=== PATIENT | male | born 1990 | race African-American/Black ===

== ENCOUNTER 2016-07-19 10:27 | Emergency (ER) | payer OTHER, SELFPAY ==
--- NOTE | 2016-07-19 11:17 | EDDOCDS ---
Physician Documentation [facility] Name: Ranjit Moseley Age: 26 yrs Sex: Male : 1990 Arrival Date: 07/19/2016 Time: 10:27 Bed TR8 Private MD: NO PRIMARY PHYSICIAN, . Disposition: 07/19/16 10:53 Discharged to Home/Self Care. Impression: Dental caries. - Condition is Stable. - Discharge Instructions: Dental Pain. - Prescriptions for Clindamycin HCl 300 mg Oral Capsule - take 1 capsule by ORAL route every 6 hours; 40 capsule. Ultram 50 mg Oral Tablet - take 1 tablet by ORAL route every 6 hours As needed MDD: 4 tabs; 20 tablet. - Medication Reconciliation, Local Pharmacy Hours form. - Follow up: Your, Dentist; When: Call to arrange an appointment; Reason: Further diagnostic work-up, Recheck today's complaints, Continuance of care. - Problem is an ongoing problem. - Symptoms are unchanged. Historical: - Allergies: no known allergies; - Home Meds: 1. ibuprofen 800 mg Oral tab 3 times per day (Last dose: 07/18/2016) - PMHx: none; - PSHx: none; - Social history: Smoking status: Patient states former smoker of tobacco. No barriers to communication noted, The patient speaks fluent Peruvian, Speaks appropriately for age. - Family history: Not pertinent. - : The pt / caregiver states he / she is not on anticoagulants. Home medication list is obtained from the patient. - Exposure Risk Screening:: None identified. Vital Signs: 07/19 10:30 BP 146 / 81; Pulse 72; Resp 18 S; Temp 96.8(O); Pulse Ox 100% on R/A; Weight 86.18 kg / gr2 189.99 lbs (R); Height 5 ft. 8 in. (172.72 cm) (R); Pain 10/10; 10:30 Body Mass Index 28.89 (86.18 kg, 172.72 cm) gr2 MDM: 11:02 Financial registration complete. mm15 11:02 [facility] Payment Agreement was scanned into [employer] and attached to record. mm15 Signatures: Daija Mitchell RN RN rs3 Eric Carty PA PA btw Ayanna Clifford mm15 Nunu Miranda,RN RN ead The chart was reviewed and I authenticate all verbal orders and agree with the evaluation and treatment provided.Attachments: 11:02 [facility] Payment Agreement mm15 MTDD
--- NOTE | 2016-07-19 11:17 | EDDOCDS ---
Nurse's Notes [facility] Name: Ranjit Moseley Age: 26 yrs Sex: Male : 1990 Arrival Date: 07/19/2016 Time: 10:27 Bed TR8 Private MD: NO PRIMARY PHYSICIAN, . Diagnosis: Dental caries Presentation: 07/19 10:33 Presenting complaint: Patient states: pt c/o toothache, unable to see dentist until ead August. pt c/o headache. pt took 800 mg ibuprofen at home with no relief. Adult Sepsis Screening: The patient does not have new or worsening altered mentation. Patient's respiratory rate is less than 22. Systolic blood pressure is greater than 100. Patient has a qSOFA score of 0- Negative Sepsis Screen. Suicide/Homicide risk assessment- the patient denies having any suicidal and/or homicidal ideations and does not present with any other emotional, behavioral or mental health complaints. Status: Patient is not a building services engineer or dependent. Transition of care: patient was not received from another setting of care. 10:33 Acuity: LUZMARIA Level 5 ead 10:33 Method Of Arrival: Walkin/Carried/Asstd ead Triage Assessment: 10:35 General: Appears in no apparent distress, uncomfortable, Behavior is appropriate for ead age, cooperative. Pain: Location: mouth Pain currently is 8 out of 10 on a pain scale. HIV screening NA for this visit Offered previously. Neurological: Reports headache. EENT: Reports pain in mouth. Respiratory: Airway is patent Respiratory effort is even, unlabored. Historical: - Allergies: no known allergies; - Home Meds: 1. ibuprofen 800 mg Oral tab 3 times per day (Last dose: 07/18/2016) - PMHx: none; - PSHx: none; - Social history: Smoking status: Patient states former smoker of tobacco. No barriers to communication noted, The patient speaks fluent Israeli, Speaks appropriately for age. - Family history: Not pertinent. - : The pt / caregiver states he / she is not on anticoagulants. Home medication list is obtained from the patient. - Exposure Risk Screening:: None identified. Screenin:14 Screening information is obtained from the patient. Primary language is Israeli. Fall rs3 risk: No risks identified. Assistance ADL's: requires no assistance with activities of daily living. Abuse/DV Screen: The patient / caregiver reports he/she is: not in a situation that causes fear, pain or injury. Nutritional screening: No deficits noted. Advance Directives: Currently, there is no health care proxy. home support is adequate. Assessment: 11:14 General: Appears in no apparent distress. Pain: Complains of pain in mouth. Awake, rs3 alert, oriented. Skin warm and dry. Moves all extremities. Bilateral breath sounds clear. Respirations unlabored. Abdomen soft, non-tender. No apparent distress. The patient / caregiver is instructed regarding the plan of care and ED course. Physical assessment to be completed by BRANDIN/TOMAS. Vital Signs: 10:30 BP 146 / 81; Pulse 72; Resp 18 S; Temp 96.8(O); Pulse Ox 100% on R/A; Weight 86.18 kg gr2 (R); Height 5 ft. 8 in. (172.72 cm) (R); Pain 10/10; 10:30 Body Mass Index 28.89 (86.18 kg, 172.72 cm) gr2 Vitals: 10:30 Log In Time: July 19, 2016 at 10:30. gr2 ED Course: 10:29 Patient visited by Edvin Barone. gr2 10:29 NO PRIMARY PHYSICIAN, . is Private Physician. gr2 10:29 Patient moved to Waiting gr2 10:31 Patient visited by Edvin Barone. gr2 10:31 Patient moved to Pre RCE gr2 10:34 Triage Initiated ead 10:35 Patient moved to Triage 2 ead 10:49 [facility] btw 10:49 Logan Miguel MD is Attending Physician. btw 10:49 Patient visited by Eric Carty PA. btw 10:52 Your, Dentist is Referral Physician. btw 11:02 [facility] Payment Agreement was scanned into [employer] and attached to record. mm15 11:06 Patient moved to TR8 ead 11:16 Patient has correct armband on for positive identification. rs3 11:16 No IV's were initiated during this patient's visit. No procedures done that require rs3 assistance. Order Results: There are currently no results for this order. Outcome: 10:53 Discharge ordered by Provider. btw 11:15 The following High Risk Discharge criteria are identified: None. Discharged to home rs3 with family. Condition: stable. Discharge instructions given to patient, Instructed on discharge instructions, follow up and referral plans. medication usage, Demonstrated understanding of instructions, medications, Pt was receptive of discharge instructions/ teaching. Prescriptions given X 2. No special radiology studies were completed. 11:16 Discharge Assessment: patient administered narcotics - no. The following High Risk rs3 Discharge criteria are identified: None. Discharged to home with family. Property :Personal belongings accompany Pt. 11:16 Patient left the ED. rs3 Signatures: Daija Mitchell,RN RN rs3 Eric Carty PA PA btw Edvin Barone gr2 Ayanna Clifford mm15 Nunu Miranda,RN RN ead MTDD
--- NOTE | 2016-07-21 12:17 | EDDOCDS ---
Physician Documentation [facility] Name: Ranjit Moseley Age: 26 yrs Sex: Male : 1990 Arrival Date: 07/19/2016 Time: 10:27 Bed TR8 Private MD: NO PRIMARY PHYSICIAN, . Disposition: 07/19/16 10:53 Discharged to Home/Self Care. Impression: Dental caries. - Condition is Stable. - Discharge Instructions: Dental Pain. - Prescriptions for Clindamycin HCl 300 mg Oral Capsule - take 1 capsule by ORAL route every 6 hours; 40 capsule. Ultram 50 mg Oral Tablet - take 1 tablet by ORAL route every 6 hours As needed MDD: 4 tabs; 20 tablet. - Medication Reconciliation, Local Pharmacy Hours form. - Follow up: Your, Dentist; When: Call to arrange an appointment; Reason: Further diagnostic work-up, Recheck today's complaints, Continuance of care. - Problem is an ongoing problem. - Symptoms are unchanged. Historical: - Allergies: no known allergies; - Home Meds: 1. ibuprofen 800 mg Oral tab 3 times per day (Last dose: 07/18/2016) - PMHx: none; - PSHx: none; - Social history: Smoking status: Patient states former smoker of tobacco. No barriers to communication noted, The patient speaks fluent Estonian, Speaks appropriately for age. - Family history: Not pertinent. - : The pt / caregiver states he / she is not on anticoagulants. Home medication list is obtained from the patient. - Exposure Risk Screening:: None identified. Vital Signs: 07/19 10:30 BP 146 / 81; Pulse 72; Resp 18 S; Temp 96.8(O); Pulse Ox 100% on R/A; Weight 86.18 kg / gr2 189.99 lbs (R); Height 5 ft. 8 in. (172.72 cm) (R); Pain 10/10; 10:30 Body Mass Index 28.89 (86.18 kg, 172.72 cm) gr2 MDM: 11:02 Financial registration complete. mm15 11:02 [facility] Payment Agreement was scanned into [employer] and attached to record. mm15 13:11 T-Sheet-- Draft Copy was scanned into [employer] and attached to record. gb Signatures: Janel Huerta, Reg Reg gb Daija Mitchell RN RN rs3 Eric Carty PA PA btw Ayanna Clifford mm15 Nunu MirandaRN RN samueld The chart was reviewed and I authenticate all verbal orders and agree with the evaluation and treatment provided.Attachments: 11:02 [facility] Payment Agreement mm15 13:11 T-Sheet-- Draft Copy gb Chart Complete MTDD
--- NOTE | 2016-07-21 12:17 | EDDOCDS ---
Nurse's Notes [facility] Name: Ranjit Moseley Age: 26 yrs Sex: Male : 1990 Arrival Date: 07/19/2016 Time: 10:27 Bed TR8 Private MD: NO PRIMARY PHYSICIAN, . Diagnosis: Dental caries Presentation: 07/19 10:33 Presenting complaint: Patient states: pt c/o toothache, unable to see dentist until ead August. pt c/o headache. pt took 800 mg ibuprofen at home with no relief. Adult Sepsis Screening: The patient does not have new or worsening altered mentation. Patient's respiratory rate is less than 22. Systolic blood pressure is greater than 100. Patient has a qSOFA score of 0- Negative Sepsis Screen. Suicide/Homicide risk assessment- the patient denies having any suicidal and/or homicidal ideations and does not present with any other emotional, behavioral or mental health complaints. Status: Patient is not a service desk manager or dependent. Transition of care: patient was not received from another setting of care. 10:33 Acuity: LUZMARIA Level 5 ead 10:33 Method Of Arrival: Walkin/Carried/Asstd ead Triage Assessment: 10:35 General: Appears in no apparent distress, uncomfortable, Behavior is appropriate for ead age, cooperative. Pain: Location: mouth Pain currently is 8 out of 10 on a pain scale. HIV screening NA for this visit Offered previously. Neurological: Reports headache. EENT: Reports pain in mouth. Respiratory: Airway is patent Respiratory effort is even, unlabored. Historical: - Allergies: no known allergies; - Home Meds: 1. ibuprofen 800 mg Oral tab 3 times per day (Last dose: 07/18/2016) - PMHx: none; - PSHx: none; - Social history: Smoking status: Patient states former smoker of tobacco. No barriers to communication noted, The patient speaks fluent Guamanian, Speaks appropriately for age. - Family history: Not pertinent. - : The pt / caregiver states he / she is not on anticoagulants. Home medication list is obtained from the patient. - Exposure Risk Screening:: None identified. Screenin:14 Screening information is obtained from the patient. Primary language is Guamanian. Fall rs3 risk: No risks identified. Assistance ADL's: requires no assistance with activities of daily living. Abuse/DV Screen: The patient / caregiver reports he/she is: not in a situation that causes fear, pain or injury. Nutritional screening: No deficits noted. Advance Directives: Currently, there is no health care proxy. home support is adequate. Assessment: 11:14 General: Appears in no apparent distress. Pain: Complains of pain in mouth. Awake, rs3 alert, oriented. Skin warm and dry. Moves all extremities. Bilateral breath sounds clear. Respirations unlabored. Abdomen soft, non-tender. No apparent distress. The patient / caregiver is instructed regarding the plan of care and ED course. Physical assessment to be completed by BRANDIN/TOMAS. Vital Signs: 10:30 BP 146 / 81; Pulse 72; Resp 18 S; Temp 96.8(O); Pulse Ox 100% on R/A; Weight 86.18 kg gr2 (R); Height 5 ft. 8 in. (172.72 cm) (R); Pain 10/10; 10:30 Body Mass Index 28.89 (86.18 kg, 172.72 cm) gr2 Vitals: 10:30 Log In Time: July 19, 2016 at 10:30. gr2 ED Course: 10:29 Patient visited by Edvin Barone. gr2 10:29 NO PRIMARY PHYSICIAN, . is Private Physician. gr2 10:29 Patient moved to Waiting gr2 10:31 Patient visited by Edvin Barone. gr2 10:31 Patient moved to Pre RCE gr2 10:34 Triage Initiated ead 10:35 Patient moved to Triage 2 ead 10:49 Eric Carty PA is PHCP. btw 10:49 Logan Miguel MD is Attending Physician. btw 10:49 Patient visited by Eric Carty PA. btw 10:52 Your, Dentist is Referral Physician. btw 11:02 [facility] Payment Agreement was scanned into [employer] and attached to record. mm15 11:06 Patient moved to TR8 ead 11:16 Patient has correct armband on for positive identification. rs3 11:16 No IV's were initiated during this patient's visit. No procedures done that require rs3 assistance. 13:11 T-Sheet-- Draft Copy was scanned into [employer] and attached to record. gb Order Results: There are currently no results for this order. Outcome: 10:53 Discharge ordered by Provider. btw 11:15 The following High Risk Discharge criteria are identified: None. Discharged to home rs3 with family. Condition: stable. Discharge instructions given to patient, Instructed on discharge instructions, follow up and referral plans. medication usage, Demonstrated understanding of instructions, medications, Pt was receptive of discharge instructions/ teaching. Prescriptions given X 2. No special radiology studies were completed. 11:16 Discharge Assessment: patient administered narcotics - no. The following High Risk rs3 Discharge criteria are identified: None. Discharged to home with family. Property :Personal belongings accompany Pt. 11:16 Patient left the ED. rs3 Signatures: Janel Huerta, Reg Reg gb Daija MitchellRN RN rs3 Eric Carty PA PA btw Edvin Barone gr2 Ayanna Clifford mm15 Nunu Miranda,RN RN ead Chart Complete ANANDAD
--- NOTE | 2016-07-21 12:17 | EDDOCDS ---
Physician Documentation [facility] Name: Ranjit Moseley Age: 26 yrs Sex: Male : 1990 Arrival Date: 07/19/2016 Time: 10:27 Bed TR8 Private MD: NO PRIMARY PHYSICIAN, . Disposition: 07/19/16 10:53 Discharged to Home/Self Care. Impression: Dental caries. - Condition is Stable. - Discharge Instructions: Dental Pain. - Prescriptions for Clindamycin HCl 300 mg Oral Capsule - take 1 capsule by ORAL route every 6 hours; 40 capsule. Ultram 50 mg Oral Tablet - take 1 tablet by ORAL route every 6 hours As needed MDD: 4 tabs; 20 tablet. - Medication Reconciliation, Local Pharmacy Hours form. - Follow up: Your, Dentist; When: Call to arrange an appointment; Reason: Further diagnostic work-up, Recheck today's complaints, Continuance of care. - Problem is an ongoing problem. - Symptoms are unchanged. Historical: - Allergies: no known allergies; - Home Meds: 1. ibuprofen 800 mg Oral tab 3 times per day (Last dose: 07/18/2016) - PMHx: none; - PSHx: none; - Social history: Smoking status: Patient states former smoker of tobacco. No barriers to communication noted, The patient speaks fluent [place], Speaks appropriately for age. - Family history: Not pertinent. - : The pt / caregiver states he / she is not on anticoagulants. Home medication list is obtained from the patient. - Exposure Risk Screening:: None identified. Vital Signs: 07/19 10:30 BP 146 / 81; Pulse 72; Resp 18 S; Temp 96.8(O); Pulse Ox 100% on R/A; Weight 86.18 kg / gr2 189.99 lbs (R); Height 5 ft. 8 in. (172.72 cm) (R); Pain 10/10; 10:30 Body Mass Index 28.89 (86.18 kg, 172.72 cm) gr2 MDM: 11:02 Financial registration complete. mm15 11:02 [facility] Payment Agreement was scanned into [employer] and attached to record. mm15 13:11 T-Sheet-- Draft Copy was scanned into [employer] and attached to record. gb Signatures: Janel Huerta, Reg Reg gb Daija Mitchell RN RN rs3 Eric Carty PA PA btw Ayanna Clifford mm15 Nunu MirandaRN RN samueld The chart was reviewed and I authenticate all verbal orders and agree with the evaluation and treatment provided.Attachments: 11:02 [facility] Payment Agreement mm15 13:11 T-Sheet-- Draft Copy gb Chart Complete MTDD
== END 2016-07-19 11:16 | disposition home or self-care (01) ==
LOC: M ED 10:27
DX: K02.9 Dental caries, unspecified (principal); Z87.891 Personal history of nicotine dependence

== ENCOUNTER → 2016-08-17 | Outpatient (REF) | payer OTHER ==
[2016-08-17 20:05] LABS: MICROSCOPIC INDICATED? MAN YES (NO)
[2016-08-17 20:15] LABS: BACTERIA, URINE SMALL AMOUNT; HYALINE CAST, URINE NONE SEEN /lpf (0-1); MICROSCOPIC EXAM PERFORMED; RBC, URINE 0-1 /hpf (0-3); SQUAMOUS EPITHELIAL CELL URINE SMALL AMOUNT /hpf (SMALL AMT); WBC, URINE 0-1 /hpf (0-3)
== END ==
LOC: M LAB REF 16:21
PROVIDERS: ATTEND Physician Assistant
DX: Z11.3 Encounter for screening for infections with a predominantly sexual mode of transmission (principal)

== ENCOUNTER → 2016-11-30 | Outpatient (CLI) | payer OTHER | LOC: M WUC 13:28 | PROVIDERS: ATTEND Physician Assistant | DX: Z20.2 Contact with and (suspected) exposure to infections with a predominantly sexual mode of transmission (principal) ==

== ENCOUNTER → 2017-01-19 | Outpatient (REF) | payer OTHER | LOC: M LAB REF 17:15 | PROVIDERS: ATTEND Physician Assistant | DX: R30.0 Dysuria (principal) ==

== ENCOUNTER 2017-01-20 22:35 | Emergency (ER) | payer OTHER ==
[~2017-01-20] VITALS: Ht 172.7 cm; Wt 86.8 kg
[2017-01-20] MEDS ORDERED: ADACEL/BOOSTRIX VACCINE (DIPHTH/PERTUSS/ACELL/TETANUS)0.5ML SYR (90715) IM ONE (23:15)
[2017-01-21 00:38] VITALS: BP 139/94
== END 2017-01-21 00:41 | disposition home or self-care (01) ==
LOC: M ED 22:35
DX: S41.111A Laceration without foreign body of right upper arm, initial encounter (principal); W25.XXXA Contact with sharp glass, initial encounter; Y92.89 Other specified places as the place of occurrence of the external cause; Y93.89 Activity, other specified; Y99.9 Unspecified external cause status

== ENCOUNTER → 2017-08-26 | Outpatient (CLI) | payer OTHER ==
[2017-08-26 17:40] LABS: BASO % 0.5 % (0.0-1.0); EOS # 0.2 10^3/uL (0.0-0.50); EOS % 2.3 % (0.0-3.0); HEMOGLOBIN 14.6 g/dl (14.0-18.0); IMMATURE GRANULOCYTE % 0.1 % (0-3.0); LYMPH # 2.9 10^3/uL (1.5-6.5); LYMPH % 37.9 % (24.0-44.0); MEAN CORPUSCULAR HEMOGLOBIN 31.1 pg (27.0-33.0); MEAN CORPUSCULAR VOLUME 91.7 fl (80.0-96.0); MONO # 0.4 10^3/uL (0.0-0.8); MONO % 4.8 % (0.0-5.0); NEUTROPHILS # 4.2 10^3/uL (1.8-7.7); NEUTROPHILS % 54.4 % (36.0-66.0); PLATELET COUNT, AUTOMATED 166 10^3/uL (150-450); RED BLOOD COUNT 4.69 10^6/uL (4.30-6.10); RED CELL DISTRIBUTION WIDTH 13.1 % (11.5-14.5); WHITE BLOOD COUNT 7.7 10^3/uL (4.0-10.0)
[2017-08-26 17:54] LABS: ALBUMIN 4.3 GM/DL (3.2-5.2); ALBUMIN/GLOBULIN RATIO 1.34 (1.00-1.93); ALKALINE PHOSPHATASE 84 U/L (45-117); ALT/SGPT 46 U/L (12-78); ANION GAP 7 MEQ/L (8-16); AST/SGOT 30 U/L (7-37); BILIRUBIN,TOTAL 0.3 MG/DL (0.2-1.0); BLOOD UREA NITROGEN 17 MG/DL (7-18); CARBON DIOXIDE LEVEL 29 MEQ/L (21-32); CHLORIDE LEVEL 105 MEQ/L (98-107); CREATININE FOR GFR 1.07 MG/DL (0.70-1.30); GLOMERULAR FILTRATION RATE > 60.0 (>60); GLUCOSE, FASTING 104 MG/DL (70-100); POTASSIUM SERUM 3.9 MEQ/L (3.5-5.1); SODIUM LEVEL 141 MEQ/L (136-145); TOTAL PROTEIN 7.5 GM/DL (6.4-8.2)
[2017-08-26 18:03] LABS: APPEARANCE, URINE CLEAR (CLEAR); BACTERIA, URINE AUTO NEGATIVE (NEGATIVE); BILIRUBIN, URINE AUTO NEGATIVE (NEGATIVE); BLOOD, URINE BLOOD NEGATIVE (NEGATIVE); COLOR, URINE YELLOW (YELLOW); GLUCOSE, URINE (UA) AUTO NEGATIVE (NEGATIVE); KETONE, URINE AUTO NEGATIVE (NEGATIVE); LEUKOCYTE ESTERASE, URINE AUTO NEGATIVE (NEGATIVE); MUCUS, URINE SMALL (NEGATIVE); NITRITE, URINE AUTO NEGATIVE (NEGATIVE); PROTEIN, URINE AUTO NEGATIVE (NEGATIVE); RBC, URINE AUTO 1 /HPF (0-3); SPECIFIC GRAVITY URINE AUTO 1.026 (1.002-1.035); SQUAMOUS EPITHELIAL CELL UR AU 0 /HPF (0-6); WBC, URINE AUTO 1 /HPF (0-3)
[2017-08-29 12:03] LABS: HEPATITIS B SURFACE ANTIGEN NEGATIVE (NEGATIVE)
[2017-08-29 12:27] LABS: HEPATITIS B CORE ANTIBODY IGM NEGATIVE (NEGATIVE); HEPATITIS C VIRUS ABY INDEX 0.1 INDEX (<0.8)
[2017-08-29 12:32] LABS: HEPATITIS A ANTIBODY IGM NEGATIVE (NEGATIVE)
== END ==
LOC: M LAB 15:56
DX: Z00.00 Encounter for general adult medical examination without abnormal findings (principal); Z79.899 Other long term (current) drug therapy
CPT/HCPCS: 80053

== ENCOUNTER 2018-01-06 16:05 | Emergency (ER) | payer OTHER, SELFPAY ==
[2018-01-06] MEDS: LIDOCAINE 2% MDV 20 ML VIAL SC (18:30)
== END 2018-01-06 19:41 | disposition home or self-care (01) ==
LOC: M ED 16:05
DX: S91.115A Laceration without foreign body of left lesser toe(s) without damage to nail, initial encounter (principal); X58.XXXA Exposure to other specified factors, initial encounter; Y92.099 Unspecified place in other non-institutional residence as the place of occurrence of the external cause; Y93.9 Activity, unspecified; Y99.9 Unspecified external cause status; I10 Essential (primary) hypertension; Z72.0 Tobacco use; Z79.899 Other long term (current) drug therapy
CPT/HCPCS: 12002

== ENCOUNTER 2018-01-13 08:46 | Emergency (ER) | payer OTHER | END 2018-01-13 09:41 | disposition home or self-care (01) | LOC: M ED 08:46 | DX: Z48.02 Encounter for removal of sutures (principal); I10 Essential (primary) hypertension; Z79.899 Other long term (current) drug therapy; F17.210 Nicotine dependence, cigarettes, uncomplicated | CPT/HCPCS: 99282 ==

== ENCOUNTER 2018-04-27 15:51 | Emergency (ER) | payer OTHER ==
[2018-04-27 18:05] LABS: INFLUENZA A AMPLIFICATION NEGATIVE (NEGATIVE); INFLUENZA B AMPLIFICATION NEGATIVE (NEGATIVE)
== END 2018-04-27 18:19 | disposition home or self-care (01) ==
LOC: M ED 15:51
DX: J20.9 Acute bronchitis, unspecified (principal); J45.909 Unspecified asthma, uncomplicated
CPT/HCPCS: 71046

== ENCOUNTER 2019-02-09 11:49 | Emergency (ER) | payer OTHER, SELFPAY ==
[~2019-02-09] VITALS: Ht 172.7 cm; Wt 91.8 kg
[~2019-02-09 11:49] MED LIST: ALBU83IN INH; LISI-538; MUCI600T37 PO; PROAAER10; TESS100C PO
--- NOTE | 2019-02-09 12:27 | REP ---
Clinical: Trauma. Technique: AP, lateral, bilateral oblique views right hand . Findings: The osseous structures and joint spaces are intact and normal. There is no evidence for acute fracture or dislocation. Surrounding soft tissues are unremarkable. No subcutaneous emphysema or radiodense foreign body. Impression: Normal right hand series . No acute fracture or dislocation. Electronically Signed by Ramirez Neal MD 02/09/2019 12:17 P
[2019-02-09] MEDS ORDERED: KETOROLAC 60 MG/2 ML VIAL (J1885) IM ONE (12:45)
[2019-02-09 13:02] VITALS: BP 130/75
== END 2019-02-09 13:04 | disposition home or self-care (01) ==
LOC: M ED 11:49
DX: M20.011 Mallet finger of right finger(s) (principal); V00.131A Fall from skateboard, initial encounter; Y92.098 Other place in other non-institutional residence as the place of occurrence of the external cause; I10 Essential (primary) hypertension; F17.210 Nicotine dependence, cigarettes, uncomplicated
CPT/HCPCS: 73130; 96372; 99283; J1885

== ENCOUNTER 2019-03-21 14:16 | Emergency (ER) | payer SELFPAY ==
[~2019-03-21] VITALS: Ht 170.2 cm; Wt 93.3 kg
[2019-03-21] MEDS ORDERED: ACET650T15 PO (14:22)
[2019-03-21] MEDS ORDERED: IBUP-1022 PO (14:22)
--- NOTE | 2019-03-21 15:04 | REP ---
RIGHT THIRD DIGIT: Four views of the right 3rd digit are performed. No fracture or dislocation is seen. There is mild soft tissue swelling. IMPRESSION: No fracture or dislocation. Electronically Signed by Pieter Bhatt MD 03/22/2019 10:46 A
[2019-03-21] MEDS ORDERED: NORCO, ANEXSIA 5/325MG TABLET (HYDROcodone/ACETAMINOPHEN) PO ONE (15:30)
[2019-03-21 15:40] VITALS: BP 156/91
[2019-03-21] MEDS ORDERED: NORC1TAB7 PO (15:40)
== END 2019-03-21 15:47 | disposition home or self-care (01) ==
LOC: M ED 14:16
DX: S67.192A Crushing injury of right middle finger, initial encounter (principal); S60.031A Contusion of right middle finger without damage to nail, initial encounter; W23.1XXA Caught, crushed, jammed, or pinched between stationary objects, initial encounter; Y92.009 Unspecified place in unspecified non-institutional (private) residence as the place of occurrence of the external cause; Y93.9 Activity, unspecified; J45.909 Unspecified asthma, uncomplicated; Z79.51 Long term (current) use of inhaled steroids; Z79.899 Other long term (current) drug therapy